=== PATIENT | male | born 1960 | race Caucasian/White ===

== ENCOUNTER → 2019-03-30 | Day surgery (SDC) | payer OTHER ==
[~2019-03-30] MED LIST: FENTANYL CITRATE/PF 100MCG/2 ML INJ ONE; LIDOCAINE HCL 2% LOCAL INJ 5 ML SDV VIAL INJ ONE; MIDAZOLAM HCL 2 MG/2 ML VIAL ONE; PHENYLEPHRINE HCL 1% 10 MG/ML VIAL ONE; PROPOFOL IV EMULSION 10 MG/ML 20 ML VIAL ONE
--- OUTSIDE RECORDS SUMMARY | 2019-03-30 08:56 | XMS REPORT ---
Author Author [facility] Address Unknown Phone Unavailable Care Team Providers Care [employer] Name Role Phone Unavailable Unavailable Payers Payer Name Policy Type Policy Number Effective Date Expiration Date Problems This patient has no known problems. Allergies, Adverse Reactions, Alerts Allergy Name Allergy Type Status Severity Reaction(s) Onset Date Inactive Date Treating Clinician Comments No Known Allergies DA Active U 2019-01-02 00:00:00 Medications This patient has no known medications. Results Test Description Test Time Test Comments Text Results Atomic Results Result Comments BASIC METABOLIC PANEL 2019-01-06 08:46:00 SODIUM (test code=NA) 133 mEq/L 134-147 POTASSIUM (test code=K) 4.5 mEq/L 3.4-5.0 CHLORIDE (test code=CL) 102 mEq/L 100-108 CARBON DIOXIDE (test code=CO2) 27 mEq/L 21-33 ANION GAP (test code=GAP) 9 0-20 GLUCOSE (test code=GLU) 79 mg/dL 70-110 BLOOD UREA NITROGEN (test code=BUN) 20 mg/dL 7-18 GLOMERULAR FILTRATION RATE (test code=GFR) 87.0 90-95 Units of measure=ml/min/1.73 m2 CREATININE (test code=CREAT) 0.9 mg/dL 0.6-1.3 CALCIUM (test code=CA) 8.6 mg/dL 8.0-10.5 [id number] 08:46:00* Test Item Value Reference Range Comments PHOSPHOROUS (test code=PHOS) 2.4 MG/DL 2.5-4.9 [id number] 08:46:00* Test Item Value Reference Range Comments MAGNESIUM (test code=MAG) 1.90 mg/dL 1.8-2.4 CBC W/AUTO [id number] 07:41:00* Test Item Value Reference Range Comments WHITE BLOOD CELL (test code=WBC) 4.73 x10 3/uL 4.5-11.0 RED BLOOD CELL (test code=RBC) 2.86 x10 6/uL 4.00-5.60 HEMOGLOBIN (test code=HGB) 8.2 g/dL 12.5-16.9 HEMATOCRIT (test code=HCT) 24.9 % 37.5-50.7 MEAN CELL VOLUME (test code=MCV) 87.1 fL 81.0-99.0 MEAN CELL HGB (test code=MCH) 28.7 pg 27.0-33.0 MEAN CELL HGB CONCETRATION (test code=MCHC) 32.9 g/dL 33.0-37.0 RED CELL DISTRIBUTION WIDTH CV (test code=RDW) 12.6 % 11.5-14.5 RED CELL DISTRIBUTION WIDTH SD (test code=RDW-SD) 40.4 fL 37.0-54.0 PLATELET COUNT (test code=PLT) 190 x10 3/uL 150-400 MEAN PLATELET VOLUME (test code=MPV) 10.0 fL 7.0-9.0 NEUTROPHIL % (test code=NT%) 68.6 % 56.0-77.0 IMMATURE GRANULOCYTE % (test code=IG%) 0.4 % 0.0-2.0 LYMPHOCYTE % (test code=LY%) 13.5 % 14.0-32.0 MONOCYTE % (test code=MO%) 12.7 % 4.8-9.0 EOSINOPHIL % (test code=EO%) 4.4 % 0.3-3.7 BASOPHIL % (test code=BA%) 0.4 % 0.0-2.0 NUCLEATED RBC % (test code=NRBC%) 0.0 % 0-0 NEUTROPHIL # (test code=NT#) 3.24 x10 3/uL 2.0-7.6 IMMATURE GRANULOCYTE # (test code=IG#) 0.02 x10 3/uL 0.00-0.03 LYMPHOCYTE # (test code=LY#) 0.64 x10 3/uL 1.0-3.8 MONOCYTE # (test code=MO#) 0.60 x10 3/uL 0.1-0.8 EOSINOPHIL # (test code=EO#) 0.21 x10 3/uL 0.0-0.2 BASOPHIL # (test code=BA#) 0.02 x10 3/uL 0.0-0.2 NUCLEATED RBC # (test code=NRBC#) 0.00 x10 3/uL 0.0-0.1 MANUAL DIFF REQUIRED (test code=MDIFF) NO - XR SWLW FUNC W/C [id number] 14:37:00 FAX: Radha Denson [phone] [place]: St: ADM FAX: Tisha Smith MD [phone] Name: GIORGIO TEIXEIRA [facility] : 1960 Age/S: 58/M [address] [place] [address] Unit #: [id number] Loc: G.6627 [facility] [place] [address] Phys: Radha Denson [facility] Acct: [id number] Dis Date: Status: ADM IN PHONE #: [phone] Exam Date: 01/05/2019 1420 FAX #: [phone] Reason: HX OF H N CANCER W/RA DIATION [place] EXAMS: CPT CODE: [id number] XR SWLW FUNC W/C V 04557 MODIFIED BARIUM SWALLOW: INDICATION: Patient has history of head and neck malignancy with subsequent radiation therapy. D ysphagia . FLUOROSCOPY: 1 minute 52 seconds of fluoroscopy utilize d. RADIATION EXPOSURE: 5.59 mGy. This study was performed i n conjunction with the speech pathologist. Thin and nectar thick liquid ba rium were given as well as barium pudding. ORAL PHASE: No rmal, although chewing was not assessed.. PHARYNGEAL PHASE: Vallec ular pooling occurs with piriform pooling. Persistent laryngeal penetrati on with thin and nectar thick liquid. No aspiration. ESOPHA JERRY: Not tested. IMPRESSION: Persistent laryngeal penetration wi th liquids. No aspiration. Please refer to the speech pathologist report. [id number] at 1437 Reported and si gned by: Daryl Cardona M.D. CC: Radha Denson; Tisha cortes MD Technologist: RT Senait(R) Trnscrd Date/Time/By: 01/05/2019 (9586) : By: JamesRTB Orig Print D/T: S: 01/05/2019 (8487) PAGE 1 Signed Report BASIC METABOLIC [id number] 05:01:00* Test Item Value Reference Range Comments SODIUM (test code=NA) 134 mEq/L 134-147 POTASSIUM (test code=K) 4.3 mEq/L 3.4-5.0 CHLORIDE (test code=CL) 101 mEq/L 100-108 CARBON DIOXIDE (test code=CO2) 29 mEq/L 21-33 ANION GAP (test code=GAP) 8 0-20 GLUCOSE (test code=GLU) 74 mg/dL 70-110 BLOOD UREA NITROGEN (test code=BUN) 25 mg/dL 7-18 GLOMERULAR FILTRATION RATE (test code=GFR) 62.4 90-95 Units of measure=ml/min/1.73 m2 CREATININE (test code=CREAT) 1.2 mg/dL 0.6-1.3 CALCIUM (test code=CA) 8.0 mg/dL 8.0-10.5 [id number] 05:01:00* Test Item Value Reference Range Comments PHOSPHOROUS (test code=PHOS) 2.5 MG/DL 2.5-4.9 [id number] 05:01:00* Test Item Value Reference Range Comments MAGNESIUM (test code=MAG) 1.90 mg/dL 1.8-2.4 TOTAL IRON BINDING [id number] 05:01:00* Test Item Value Reference Range Comments SERUM IRON (test code=IRON) 55 mcg/dL 35-150 TOTAL IRON BINDING CAPACITY (test code=TIBC) 214 mcg/dL 260-445 UIBC (test code=UIBC) 159 mcg/dL IRON SATURATION (test code=FESAT) 25.7 % 14-34 VITAMIN [id number] 05:01:00* Test Item Value Reference Range Comments VITAMIN B12 (test code=VITB12) 690 pg/mL 193-986 FOLIC [id number] 05:01:00* Test Item Value Reference Range Comments FOLIC ACID (test code=FOL) 4.1 ng/mL 3.1-17.5 [id number] 05:01:00* Test Item Value Reference Range Comments FERRITIN (test code=JOSE ALFREDO) 124.7 ng/mL 23.9-336.2 CBC W/AUTO [id number] 04:17:00* Test Item Value Reference Range Comments WHITE BLOOD CELL (test code=WBC) 4.36 x10 3/uL 4.5-11.0 RED BLOOD CELL (test code=RBC) 2.75 x10 6/uL 4.00-5.60 HEMOGLOBIN (test code=HGB) 7.9 g/dL 12.5-16.9 HEMATOCRIT (test code=HCT) 23.9 % 37.5-50.7 MEAN CELL VOLUME (test code=MCV) 86.9 fL 81.0-99.0 MEAN CELL HGB (test code=MCH) 28.7 pg 27.0-33.0 MEAN CELL HGB CONCETRATION (test code=MCHC) 33.1 g/dL 33.0-37.0 RED CELL DISTRIBUTION WIDTH CV (test code=RDW) 12.8 % 11.5-14.5 RED CELL DISTRIBUTION WIDTH SD (test code=RDW-SD) 40.4 fL 37.0-54.0 PLATELET COUNT (test code=PLT) 141 x10 3/uL 150-400 MEAN PLATELET VOLUME (test code=MPV) 9.6 fL 7.0-9.0 NEUTROPHIL % (test code=NT%) 70.2 % 56.0-77.0 IMMATURE GRANULOCYTE % (test code=IG%) 0.2 % 0.0-2.0 LYMPHOCYTE % (test code=LY%) 12.2 % 14.0-32.0 MONOCYTE % (test code=MO%) 12.6 % 4.8-9.0 EOSINOPHIL % (test code=EO%) 4.1 % 0.3-3.7 BASOPHIL % (test code=BA%) 0.7 % 0.0-2.0 NUCLEATED RBC % (test code=NRBC%) 0.0 % 0-0 NEUTROPHIL # (test code=NT#) 3.06 x10 3/uL 2.0-7.6 IMMATURE GRANULOCYTE # (test code=IG#) 0.01 x10 3/uL 0.00-0.03 LYMPHOCYTE # (test code=LY#) 0.53 x10 3/uL 1.0-3.8 MONOCYTE # (test code=MO#) 0.55 x10 3/uL 0.1-0.8 EOSINOPHIL # (test code=EO#) 0.18 x10 3/uL 0.0-0.2 BASOPHIL # (test code=BA#) 0.03 x10 3/uL 0.0-0.2 NUCLEATED RBC # (test code=NRBC#) 0.00 x10 3/uL 0.0-0.1 MANUAL DIFF REQUIRED (test code=MDIFF) NO - US RETRO [id number] 14:26:00 Name: GIORGIO TEIXEIRA [facility] : 1960 Age/S: 58 / M [address] [place] [address] Unit #: [id number] Loc: [place] [address] Phys: Kaiser James MD Acct: [id number] Dis Date: Status: ADM IN PHONE #: [phone] Exam Date: 01/04/2019 1407 FAX #: [phone] Reason: elevated creatinine EXAMS: CPT CODE: [id number] US RETRO LTD 82801 Patient: GIORGIO TEIXEIRA. : 1960; Age: 58 years; Gender: Male. MR: [id number]. Ordering physician: Kaiser James MD. PROCEDURE: RENAL ULTRASOUND INDICATION: Elevated creatinine. COMPARISON: CT abdomen and pelvis 01/02/2019. TECHNIQUE: Sonographic evaluation of the kidneys and urinary bladder was performed. FINDINGS: KIDNEYS: The right kidney measures 11.5 cm in length. Several subcentimeter cysts noted. Normal contour and parenchymal echogenicity. There is no hydronephrosis, nephrolithiasis, mass lesion or perinephric collection. The left kidney measures 11.9 cm in length. Several subcentimeter cysts also noted. Normal contour and parenchymal echogenicity. There is no hydronephrosis, nephrolithiasis, mass lesion or perinephric collection. BLADDER: Debris noted within urinary bladder. Partially visualized inferior vena cava and abdominal aorta are unremarkable. Aortic bifurcation was not visualized secondary to overlying bowel gas. IMPRESSION: 1. Several subcentimeter renal cysts bilaterally. Otherwise, kidneys are unremarkable bilaterally. 2. Debris noted within urinary bladder. SL: [id number] PAGE 1 Signed Report (CONTINUED) Name: GIORGIO TEIXEIRA [place] : 1960 Age/S: 58 / M [address] [place] [address] Unit #: [id number] Loc: [place] [address] Phys: Kaiser James MD Acct: [id number] Dis Date: Status: ADM IN PHONE #: [phone] Exam Date: 01/04/2019 140 FAX #: [phone] Reason: elevated creatinine EXAMS: CPT CODE: [id number] [facility] [address] < Continued> at 1426 Reported and signed by: Pete Mayorga M.D. CC: Kaiser James MD; Tisha Smith MD Technologist: Aura Barrow RDMS(AB) Trnscb Date/Time: 01/04/2019 (1426) [email or web address] Orig Print D/T: S: 01/04/2019 (1430) Probe: PAGE 2 Signed Report - DUP EXTRACRANIAL [id number] 14:13:00 Name: GIORGIO TEIXEIRA [place] : 1960 Age/S: 58 / M [address] [place] [address] Unit #: [id number] Loc: [facility] [facility] [address] Phys: Tisha Smith MD Acct: [id number] Dis Date: Status: ADM IN PHONE #: [phone] Exam Date: 01/04/2019 140 FAX #: [phone] Reason: SYNCOPE EXAMS: CPT CODE: [id number] DUP EXTRACRANIAL AURELIA 93587 Patient: GIORGIO TEIXEIRA. : 1960; Age: 58 years; Gender: Male. MR: [id number]. Ordering physician: Tisha Smith MD. CAROTID DOPPLER HISTORY: Syncope. TECHNIQUE: Grewal-scale, color Doppler and spectral Doppler of the carotid arteries was performed. Any reported ICA stenoses indirectly reference the distal internal carotid diameter as the denominator for stenosis measurement, utilizing consensus panel criteria. RIGHT: Minimal atherosclerotic plaques noted. ICA PSV 80.7 cm/sec CCA PSV 97.7 cm/sec ICA/CCA ratio 0.8 Vertebral flow is antegrade. LEFT: Minimal atherosclerotic plaques noted. ICA PSV 79.5 cm/sec CCA PSV 124 cm/sec ICA/CCA ratio 0.6 Vertebral flow is antegrade. IMPRESSION: 1. RIGHT: ICA stenosis < 50 % by velocity criteria. 2. LEFT: ICA stenosis <50 % by velocity criteria. End Impression Consensus panel Doppler US criteria for diagnosis of ICA stenosis. Stenosis (%) ICA PSV (cm/sec) ICA/CCA ratio <50 <125 <2.0 50-69 125- 230 2.0-4.0 >70 but less than >230 >4.0 near occlusion Near occlusion High, low, or undetectable Variable SL: [id number] PAGE 1 Signed Report (CONTINUED) Name: GIORGIO TEIXEIRA [facility] : 1960 Age/S: 58 / M [address] [place] [address] Blvd Unit #: [id number] Loc: [place] [address] Phys: Tisha Smith MD Acct: [id number] Dis Date: Status: ADM IN PHONE #: [phone] Exam Date: 01/04/2019 1406 FAX #: [phone] Reason: SYNCOPE EXAMS: CPT CODE: [id number] DUP EXTRACRANIAL AURELIA 82590 < Continued> at 1413 Reported and signed by: Pete Mayorga M.D. CC: Tisha Smith MD Technologist: Aura Barrow RDMS() Trnscb Date/Time: 01/04/2019 (1413) [email or web address] Orig Print D/T: S: 01/04/2019 (1746) Probe: PAGE 2 Signed Report CBC W/AUTO [id number] 09:42:00* Test Item Value Reference Range Comments WHITE BLOOD CELL (test code=WBC) 4.86 x10 3/uL 4.5-11.0 RED BLOOD CELL (test code=RBC) 2.16 x10 6/uL 4.00-5.60 HEMOGLOBIN (test code=HGB) 6.1 g/dL 12.5-16.9 HEMATOCRIT (test code=HCT) 18.8 % 37.5-50.7 MEAN CELL VOLUME (test code=MCV) 87.0 fL 81.0-99.0 MEAN CELL HGB (test code=MCH) 28.2 pg 27.0-33.0 MEAN CELL HGB CONCETRATION (test code=MCHC) 32.4 g/dL 33.0-37.0 RED CELL DISTRIBUTION WIDTH CV (test code=RDW) 12.5 % 11.5-14.5 RED CELL DISTRIBUTION WIDTH SD (test code=RDW-SD) 39.8 fL 37.0-54.0 PLATELET COUNT (test code=PLT) 153 x10 3/uL 150-400 MEAN PLATELET VOLUME (test code=MPV) 10.0 fL 7.0-9.0 NEUTROPHIL % (test code=NT%) 74.5 % 56.0-77.0 IMMATURE GRANULOCYTE % (test code=IG%) 0.2 % 0.0-2.0 LYMPHOCYTE % (test code=LY%) 10.5 % 14.0-32.0 MONOCYTE % (test code=MO%) 11.9 % 4.8-9.0 EOSINOPHIL % (test code=EO%) 2.5 % 0.3-3.7 BASOPHIL % (test code=BA%) 0.4 % 0.0-2.0 NUCLEATED RBC % (test code=NRBC%) 0.0 % 0-0 NEUTROPHIL # (test code=NT#) 3.62 x10 3/uL 2.0-7.6 IMMATURE GRANULOCYTE # (test code=IG#) 0.01 x10 3/uL 0.00-0.03 LYMPHOCYTE # (test code=LY#) 0.51 x10 3/uL 1.0-3.8 MONOCYTE # (test code=MO#) 0.58 x10 3/uL 0.1-0.8 EOSINOPHIL # (test code=EO#) 0.12 x10 3/uL 0.0-0.2 BASOPHIL # (test code=BA#) 0.02 x10 3/uL 0.0-0.2 NUCLEATED RBC # (test code=NRBC#) 0.00 x10 3/uL 0.0-0.1 MANUAL DIFF REQUIRED (test code=MDIFF) NO BASIC METABOLIC [id number] 07:43:00* Test Item Value Reference Range Comments SODIUM (test code=NA) 135 mEq/L 134-147 POTASSIUM (test code=K) 4.3 mEq/L 3.4-5.0 CHLORIDE (test code=CL) 105 mEq/L 100-108 CARBON DIOXIDE (test code=CO2) 28 mEq/L 21-33 ANION GAP (test code=GAP) 6 0-20 GLUCOSE (test code=GLU) 80 mg/dL 70-110 BLOOD UREA NITROGEN (test code=BUN) 34 mg/dL 7-18 GLOMERULAR FILTRATION RATE (test code=GFR) 41.7 90-95 Units of measure=ml/min/1.73 m2 CREATININE (test code=CREAT) 1.7 mg/dL 0.6-1.3 CALCIUM (test code=CA) 7.9 mg/dL 8.0-10.5 [id number] 07:43:00* Test Item Value Reference Range Comments PHOSPHOROUS (test code=PHOS) 2.7 MG/DL 2.5-4.9 [id number] 07:43:00* Test Item Value Reference Range Comments MAGNESIUM (test code=MAG) 2.00 mg/dL 1.8-2.4 UR PROTEIN [id number] 06:36:00* Test Item Value Reference Range Comments UR PROTEIN RANDOM (test code=PROTU) 44 mg/dL Note: Change in UNITS of MEASUREMENT. The Reference Range and Method Performance specificationshave not been established for this fluid. The test resultshould be correlated into the clinical context forinterpretation. UR CREATININE [id number] 06:36:00* Test Item Value Reference Range Comments UR CREATININE RANDOM (test code=CREATU) 122.0 mg/dL The Reference Range and Method Performance specificationshave not been established for this fluid. The test resultshould be correlated into the clinical context forinterpretation. TOTAL IRON BINDING [id number] 19:00:00* Test Item Value Reference Range Comments SERUM IRON (test code=IRON) 80 mcg/dL 35-150 TOTAL IRON BINDING CAPACITY (test code=TIBC) 236 mcg/dL 260-445 UIBC (test code=UIBC) 156 mcg/dL IRON SATURATION (test code=FESAT) 33.9 % 14-34 VITAMIN [id number] 19:00:00* Test Item Value Reference Range Comments VITAMIN B12 (test code=VITB12) 787 pg/mL 193-986 Previously reported result: pg/mLEdited by: CANDIEKTDeborah on 01/03/19: 1900: VITB12 previously reported as: pg/mL ]@Was this test run on SERUM from a RED TOP tube? YES FOLIC [id number] 19:00:00* Test Item Value Reference Range Comments FOLIC ACID (test code=FOL) 5.4 ng/mL 3.1-17.5 [id number] 19:00:00* Test Item Value Reference Range Comments FERRITIN (test code=JOSE ALFREDO) 155.9 ng/mL 23.9-336.2 TOTAL IRON BINDING [id number] 18:22:00* Test Item Value Reference Range Comments SERUM IRON (test code=IRON) 80 mcg/dL 35-150 TOTAL IRON BINDING CAPACITY (test code=TIBC) 236 mcg/dL 260-445 UIBC (test code=UIBC) 156 mcg/dL IRON SATURATION (test code=FESAT) 33.9 % 14-34 VITAMIN [id number] 18:22:00* Test Item Value Reference Range Comments VITAMIN B12 (test code=VITB12) pg/mL 193-986 ]@Was this test run on SERUM from a RED TOP tube? YES FOLIC [id number] 18:22:00* Test Item Value Reference Range Comments FOLIC ACID (test code=FOL) 5.4 ng/mL 3.1-17.5 [id number] 18:22:00* Test Item Value Reference Range Comments FERRITIN (test code=JOSE ALFREDO) 155.9 ng/mL 23.9-336.2 CREATINE KINASE (CK)2019-01-03 17:56:00* Test Item Value Reference Range Comments CREATINE KINASE (CK) (test code=CK) 81 35-232 Result is in INTERNATIONAL UNITS/LITER DRUGS OF ABUSE SCREEN [id number] 11:17:00* Test Item Value Reference Range Comments URN COCAINE (test code=COCAURN) POSITIVE NEGATIVE URN CANNABINOIDS (test code=CANNABURN) NEGATIVE NEGATIVE URN AMPHETAMINE (test code=AMPHETURN) NEGATIVE NEGATIVE URN BARBITURATE (test code=BARBITURN) NEGATIVE NEGATIVE URN BENZODIAZEPINE (test code=BENZOURN) NEGATIVE NEGATIVE Cut-off value:200 ng/mL URN OPIATES (test code=OPIATURN) POSITIVE NEGATIVE Cut-off value:2000 ng/mL URN PHENCYCLIDINE (PCP) (test code=PHENCURN) NEGATIVE NEGATIVE Cutoffs:Barbiturates 200 ng/mLBenzodiazepines 200 ng/mLTHC Cannabinoids 50 ng/mLOpiates(Morphine) 2000 ng/mLAmphetamine 1000 ng/mLCocaine 300 ng/mLPCP phencyclidine 25 ng/mL Unconfirmed screening results shouldnot be used for non-medical purposes. DRUGS OF ABUSE SCREEN [id number] 11:08:00* Test Item Value Reference Range Comments URN COCAINE (test code=COCAURN) NEGATIVE URN CANNABINOIDS (test code=CANNABURN) NEGATIVE NEGATIVE URN AMPHETAMINE (test code=AMPHETURN) NEGATIVE NEGATIVE URN BARBITURATE (test code=BARBITURN) NEGATIVE NEGATIVE URN BENZODIAZEPINE (test code=BENZOURN) NEGATIVE NEGATIVE Cut-off value:200 ng/mL URN OPIATES (test code=OPIATURN) NEGATIVE URN PHENCYCLIDINE (PCP) (test code=PHENCURN) NEGATIVE NEGATIVE Cutoffs:Barbiturates 200 ng/mLBenzodiazepines 200 ng/mLTHC Cannabinoids 50 ng/mLOpiates(Morphine) 2000 ng/mLAmphetamine 1000 ng/mLCocaine 300 ng/mLPCP phencyclidine 25 ng/mL Unconfirmed screening results shouldnot be used for non-medical purposes. URINALYSIS [id number] 10:45:00* Test Item Value Reference Range Comments UA COLOR (test code=COLU) YELLOW YEL/STRAW UA APPEARANCE (test code=APPU) SL CLOUDY CLEAR UA GLUCOSE DIPSTICK (test code=DGLUU) NEGATIVE NEGATIVE UA BILIRUBIN DIPSTICK (test code=BILU) NEGATIVE NEGATIVE UA KETONE DIPSTICK (test code=KETU) NEGATIVE NEGATIVE UA SPECIFIC GRAVITY (test code=SGU) 1.038 1.005-1.030 UA BLOOD DIPSTICK (test code=SJ) NEGATIVE NEGATIVE UA PH DIPSTICK (test code=ANDRES) 5.0 5.0-7.0 UA PROTEIN DIPSTICK (test code=PROU) NEGATIVE NEGATIVE UA UROBILINIOGEN DIPSTICK (test code=URO) 0.2 mg/dL 0.2-1.0 UA NITRITE DIPSTICK (test code=OJ) NEGATIVE NEGATIVE UA LEUKOCYTE ESTERASE DIPSTICK (test code=LEUU) NEGATIVE NEGATIVE UA RBC (test code=RBCU) 4-10 RBC/HPF 0-3 UA WBC NO REFLEX (test code=WBCUCL) 4-9 WBC/HPF 0-3 UA BACTERIA (test code=BACU) TRACE /HPF NONE SEEN UA SQUAMOUS CELLS (test code=SQU) 0-5 /HPF NONE SEEN UA MUCUS (test code=MUCU) TRACE /LPF NONE SEEN COMMENTS: Clean [id number] 10:40:00* Test Item Value Reference Range Comments TROPONIN-I (test code=TROPI) 0.133 ng/mL 0.000-0.045 Negative: <=0.045 Positive: >=0.046 Correlation with serial results, other cardiac markers andclinical findings is necessary to determine the clinicalsignificance of this result. Results using different methodologies should not be comparedto one another as quantitative results may vary by method. COMMENTS: 3 troponins total (including troponin done in ED)LIPOPROTEIN LDL 2019-01-03 08:34:00* Test Item Value Reference Range Comments LIPOPROTEIN LDL (test code=LDL) 95 mg/dL 0-100 <100 [id number] NEAR OPTIMAL/ABOVE [id number] [id number] HIGH>MV=574 VERY HIGH*Guidelines provided by the National Cholesterol EducationProgram Adult Treatment Panel III [id number] 08:06:00* Test Item Value Reference Range Comments TROPONIN-I (test code=TROPI) 0.101 ng/mL 0.000-0.045 Negative: <=0.045 Positive: >=0.046 Correlation with serial results, other cardiac markers andclinical findings is necessary to determine the clinicalsignificance of this result. Results using different methodologies should not be comparedto one another as quantitative results may vary by method. COMMENTS: 3 troponins total (including troponin done in ED)- CT ABD PELVIS [id number] 22:54:00 Name: GIORGIO TEIXEIRA [facility] : 1960 Age/S: 58 / M [address] [place] [address] Unit #: [id number] Loc: [place] [address] Phys: Jerry Venegas MD Acct: [id number] Dis Date: Status: REG ER PHONE #: [phone] Exam Date: 01/02/2019 2207 FAX #: [phone] Reason: fall, head injury , multiple lacerations EXAMS: CPT CODE: [id number] CT ABD PELVIS W/CONT 65291 CT SCAN OF THE CHEST ABDOMEN AND PELVIS WITH CONTRAST (MAJOR TRAUMA PROTOCOL): HISTORY: Major trauma. Acute injury. COMPARISON EXAMS: No prior pertinent exams for comparison. TECHNIQUE: Axial images were obtained of the chest from the lung apices to the lung bases following intravenous injection of 100 mL Isovue-300. Images were obtained of the abdomen and pelvis from the domes of the diaphragm to the symphysis pubis. 5 minute delayed images were obtained at similar levels during renal excretion phase. Coronal reconstructions were generated of the chest, abdomen and pelvis. Sagittal reconstructions were obtained of the thoracic and lumbar spine. DOSE: CT imaging performed at this location utilizes radiation dose optimization technique which includes one or more of the followin) Automated exposure control; 2) Adjustment of the mA and/or kV according to patient's size; 3) Use of iterative reconstruction techniques. DLP (mGy-cm): 604 FINDINGS: CHEST: No acute changes are identified in the chest. No acute infiltrates, pleural effusions or pulmonary contusions. No evidence of pneumothorax or pneumomediastinum. No dominant hilar or mediastinal masses. No evidence of vascular injury. However, there are extensive bilateral pulmonary cysts throughout all lobes of both lungs. The cysts are air filled with thin martinez. Pattern at the lung bases is more of a honeycomb pattern. Marked hyperinflation. Pleural parenchymal scarring is noted bilaterally with diffuse in terstitial prominence. There are multiple areas of nodular opacity and par enchymal scarring. The largest pasty is approximately 10 mm and positioned posteriorly and medially in the left lower lobe. ABDOMEN AND PELVIS: No solid organ laceration identified in the abdomen or pelvis . No focal lesions in the liver, spleen, pancreas, adrenal glands or kidn eys. No evidence of mesenteric hematoma, free air or free fluid. No acti ve extravasation. The gallbladder is normal in size. No evidence of appen dicitis. Evaluation of the abdomen and pelvis is very limited due to the p ossibility of generalized body fat. PAGE 1 Sign ed Report (CONTINUED) Name: GIORGIO TEIXEIRA [facility] : 1960 Age/S: 58 / M [address] [place] [address] Bl Unit #: [id number] Loc: [place] [address] Phys: Jerry Venegas MD Acct: [id number] Dis Date: Status: REG ER PHONE #: [phone] Exam Date: 01/02/2019 2207 FAX #: [phone] Reason: fall, head injury , mu ltiple lacerations EXAMS: CPT CODE: [id number] CT ABD PELVIS W/CONT 39507 <Continued> Fullness in the level of the left inguinal canal, and empty left side of the scrotum, compatible with incompletely distended left testicle. Excretion phase imaging shows normal opacification of the renal collecting structures. No evidence of contrast extravasation. No contrast material reached the urinary bladder at the time of the delayed imaging. SKELETAL: Bone windows show no evidence of acute fracture or suspicious blastic or lytic lesions. Spinal alignment is normal. No evidence of spinal or pelvic fracture. No evidence of sternal or rib fracture. IMPRESSION: 1. No acute changes identified in the chest, abdomen or pelvis. 2. Non descended left testicle identified in the left inguinal canal. 3. Difficult evaluation of the abdomen and pelvis due to the paucity of generalized body fat. 4. 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 The exact etiology of these findings is unknown. Pulmonary fibrosis, lymphangioleiomyomatosis, and underlying emphysematous changes are all possible. No prior imaging for comparison. 5. Up to 10 mm pleural-based pulmonary nodule noted in the left lower lobe. Short-term follow-up CT scan of the chest is recommended in 3 months to determine whether or not this resolves. If this persists, further evaluation would be warranted if stability cannot be proven by comparison to any prior exams. 6. Otherwise unremarkable exam. SL:01 at 3627 Reported and signed by: Jose Pepe M.D. PAGE 2 Signed Report (CONTINUED) Name: GIORGIO TEIXEIRA [facility] : 1960 Age/S: 58 / M [address] [place] [address] Unit #: [id number] Loc: [place] [address] Phys: Jerry Venegas MD Acct: [id number] Dis Date: Status: REG ER PHONE #: [phone] Exam Date: 01/02/20192206 FAX #: [phone] Reason: fall, head injury , multiple lacerations EXAMS: CPT CODE: [id number] CT ABD PELVIS W/CONT 86919 <Continued> CC: Jerry Venegas MD Technologist:RT Arturo(R) CTDI: DLP: Trnscb Date/Time: 01/02/2019 (2253) t.RICK Orig Print D/T: S: 01/02/2019 (2256) PAGE 3 Signed Report - CT CHEST W/[id number] 22:54:00 Name: GIORGIO TEIXEIRA [facility] : 1960 Age/S: 58 / M [address] [place] [address] Unit #: [id number] Loc: [place] [address] Phys: Jerry Venegas MD Acct: [id number] Dis Date: Status: REG ER PHONE #: [phone] Exam Date: 01/02/2019 2207 FAX #: [phone] Reason: fall, head injury , multiple lacerations EXAMS: CPT CODE: [id number] CT CHEST W/CONTRAST 57698 CT SCAN OF THE CHEST ABDOMEN AND PELVIS WITH CONTRAST (MAJOR TRAUMA PROTOCOL): HISTORY: Major trauma. Acute injury. COMPARISON EXAMS: No prior pertinent exams for comparison. TECHNIQUE: Axial images were obtained of the chest from the lung apices to the lung bases following intravenous injection of 100 mL Isovue-300. Images were obtained of the abdomen and pelvis from the domes of the diaphragm to the symphysis pubis. 5 minute delayed images were obtained at similar levels during renal excretion phase. Coronal reconstructions were generated of the chest, abdomen and pelvis. Sagittal reconstructions were obtained of the thoracic and lumbar spine. DOSE: CT imaging performed at this location utilizes radiation dose optimization technique which includes one or more of the followin) Automated exposure control; 2) Adjustment of the mA and/or kV according to patient's size; 3) Use of iterative reconstruction techniques. DLP (mGy-cm): 604 FINDINGS: CHEST: No acute changes are identified in the chest. No acute infiltrates, pleural effusions or pulmonary contusions. No evidence of pneumothorax or pneumomediastinum. No dominant hilar or mediastinal masses. No evidence of vascular injury. However, there are extensive bilateral pulmonary cysts throughout all lobes of both lungs. The cysts are air filled with thin martinez. Pattern at the lung bases is more of a honeycomb pattern. Marked hyperinflation. Pleural parenchymal scarring is noted bilaterally with diffuse in terstitial prominence. There are multiple areas of nodular opacity and par enchymal scarring. The largest pasty is approximately 10 mm and positioned posteriorly and medially in the left lower lobe. ABDOMEN AND PELVIS: No solid organ laceration identified in the abdomen or pelvis . No focal lesions in the liver, spleen, pancreas, adrenal glands or kidn eys. No evidence of mesenteric hematoma, free air or free fluid. No acti ve extravasation. The gallbladder is normal in size. No evidence of appen dicitis. Evaluation of the abdomen and pelvis is very limited due to the p ossibility of generalized body fat. PAGE 1 Sign ed Report (CONTINUED) Name: GIORGIO TEIXEIRA [facility] : 1960 Age/S: 58 / M [address] [place] [address] Unit #: [id number] Loc: [place] [address] Phys: Jerry Venegas MD Acct: [id number] Dis Date: Status: REG ER PHONE #: [phone] Exam Date: 01/02/2019 2207 FAX #: [phone] Reason: fall, head injury , mu ltiple lacerations EXAMS: CPT CODE: [id number] CT CHEST W/CONTRAST 72779 <Continued> Fullness in the level of the left inguinal canal, and empty left side of the scrotum, compatible with incompletely distended left testicle. Excretion phase imaging shows normal opacification of the renal collecting structures. No evidence of contrast extravasation. No contrast material reached the urinary bladder at the time of the delayed imaging. SKELETAL: Bone windows show no evidence of acute fracture or suspicious blastic or lytic lesions. Spinal alignment is normal. No evidence of spinal or pelvic fracture. No evidence of sternal or rib fracture. IMPRESSION: 1. No acute changes identified in the chest, abdomen or pelvis. 2. Non descended left testicle identified in the left inguinal canal. 3. Difficult evaluation of the abdomen and pelvis due to the paucity of generalized body fat. 4. 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 The exact etiology of these findings is unknown. Pulmonary fibrosis, lymphangioleiomyomatosis, and underlying emphysematous changes are all possible. No prior imaging for comparison. 5. Up to 10 mm pleural-based pulmonary nodule noted in the left lower lobe. Short-term follow-up CT scan of the chest is recommended in 3 months to determine whether or not this resolves. If this persists, further evaluation would be warranted if stability cannot be proven by comparison to any prior exams. 6. Otherwise unremarkable exam. SL:01 at 2254 Reported and signed by: Jose Pepe M.D. PAGE 2 Signed Report (CONTINUED) Name: GIORGIO TEIXEIRA [facility] [place] : 1960 Age/S: 58 / M [address] [place] [address] Unit #: [id number] Loc: [place] [address] Phys: Jerry Venegas MD Acct: [id number] Dis Date: Status: REG ER PHONE #: [phone] Exam Date: 01/02/20192206 FAX #: [phone] Reason: fall, head injury , multiple lacerations EXAMS: CPT CODE: [id number] CT CHEST W/CONTRAST 74914 <Continued> CC: Jerry Venegas MD Technologist:Tori Juan, RT(R) CTDI: DLP: Trnscb Date/Time: 01/02/2019 (809) [email or web address] Orig Print D/T: S: 01/02/2019 (3754) PAGE 3 Signed Report - CT C-SPINE W/O [id number] 22:28:00 Name: GIORGIO TEIXEIRA [facility] [place] : 1960 Age/S: 58 / M [address] [place] [address] Unit #: [id number] Loc: [place] [address] Phys: Jerry Venegas MD Acct: [id number] Dis Date: Status: REG ER PHONE #: [phone] Exam Date: 01/02/20192206 FAX #: [phone] Reason: NECK PAIN EXAMS: CPT CODE: [id number] CT C-SPINE W/O CONT 03004 CT SCAN OF THE CERVICAL SPINE WITHOUT CONTRAST: HISTORY: Acute injury. Acute neck pain. COMPARISON EXAMS: No prior pertinent exams for comparison. TECHNIQUE: Axial images were obtained from the skull base to the thoracic inlet without contrast material. Sagittal and coronal reconstructions were generated. No prior plain films available for comparison. DOSE: CT imaging performed at this location utilizes radiation dose optimization technique which includes one or more of the followin) Automated exposure control; 2) Adjustment of the mA and/or kV according to patient's size; 3) Use of iterative reconstruction techniques. DLP (mGy-cm): 300 FINDINGS: Alignment of the cervical spine remains normal. The prevertebral tissues are normal. No evidence of fracture or subluxation. Moderate to severe diffuse disc space narrowing and osteophyte formation are present compatible with degenerative disc disease. The facets are narrowed with marginal osteophytes compatible with moderate osteoarthritis. The facet joints are fused at C2-C3. The lung apices are clear. Soft tissue evaluation of the neck shows some asymmetry in the oropharynx and in the right piriform sinus. This likely represents some layering secretions. These regions are not well evaluated without IV contrast. No dominant adenopathy. The thyroid gland is unremarkable. IMPRESSION: 1. No evidence of fracture or subluxation. 2. Moderate to severe degenerative disc disease and osteoarthritis. 3. The C2-C3 facet joints appear congenitally fused. 4. Asymmetries in the oropharynx and hypopharynx are likely secondary to layering secretions. SL:01 PAGE 1 Signed Report (CONTINUED) Name: GIORGIO TEIXEIRA [facility] [place] : 1960 Age/S: 58 / M [address] [place] [address] Unit #: [id number] Loc: [place] [address] Phys: Jerry Venegas MD Acct: [id number] Dis Date: Status: REG ER PHONE #: [phone] Exam Date: 01/02/20192206 FAX #: [phone] Reason: NECK PAIN EXAMS: CPT CODE: [id number] CT C-SPINE W/O CONT 49292 <Continued> at 2228 Reported and signed by: Jose Pepe M.D. CC: Jerry Venegas MD Technologist:RT Arturo(R) CTDI: DLP: Trnscb Date/Time: 01/02/2019 (2227) [email or web address] Orig Print D/T: S: 01/02/2019 (223) PAGE 2 Signed Report - CT HEAD/BRAIN W/O [id number] 22:26:00 Name: GIORGIO TEIXEIRA [facility] [place] : 1960 Age/S: 58 / M [address] [place] [address] Unit #: [id number] Loc: [place] [address] Phys: Jerry Venegas MD Acct: [id number] Di s Date: Status: REG ER PHONE #: Exam Date: 01/02/20192206 FAX #: [phone] Reason: HEADACHE EXAMS: CPT CODE: [id number] CT HEAD/BRAIN W/O CONT 63630 Clinical Indication: HEAD ACHE, trauma; Comparison: None TECHNIQUE: CT images were ob tained from the foramen magnum to the vertex without the use of intravenou s contrast on a multidetector CT. Coronal and sagittal reconstructions wer e obtained. CT radiation dose DLP: 472 mGy-cm FINDINGS: BRAIN PARENCHYMA: There are normal grewal-white interfaces, sulci and gyri. There are no focal mass lesions on this noncontrast head CT. There is no mass effect, midline shift or edema. There are no intra-axial or extra-axial fluid collections, intraventricular or intraparenchymal hem orrhage. The pineal, sellar, brainstem, cerebellum and skull base regions appear unremarkable. VENTRICLES: The lateral ventricles, third and fourth ventricles appear unremarkable. The basilar cisterns are normal. ORBITS, MASTOIDS AND PARANASAL SINUSES: Mucosal thickening is seen in the right maxillary sinus. The visualized orbits and remaining paranasal sinuses are unremarkable. The mastoid air cells are clear. SKULL: There are no osseous abnormalities. If there is further concern for intracranial pathology or acute stroke, MRI of the brain may be performed for complete assessment. IMPRESSION: 1. U nremarkable noncontrast head CT with no mass, hemorrhage or subacute str echo. 2. Sinus disease affecting the right maxillary sinus. SL: LANVU-H at 2226 Reported and signed b y: Elvin Carty M.D. PAGE 1 Signed Report (CONTINUED) Name: GIORGIO TEIXEIRA [facility] : 1960 Age/S: 58 / M [address] [place] [address] [address] Unit #: [id number] Loc: [place], [place] [address] Phys: Jerry Venegas MD Acct: [id number] Dis Date: Status: REG ER PHONE #: [phone] Exam Date: 01/02/20192206 FAX #: [phone] Reason: HEADACHE EXAMS: CPT CODE: [id number] CT HEAD/BRAIN W/O CONT 58285 < Continued> CC: Jerry Venegas MD Technologist:Tori Juan, RT(R) CTDI: DLP: Trnscb Date/Time: 01/02/2019 (2225) [email or web address] Orig Print D/T: S: 01/02/2019 (8415) PAGE 2 Signed Report BASIC METABOLIC [id number] 22:06:00* Test Item Value Reference Range Comments SODIUM (test code=NA) 134 mEq/L 134-147 POTASSIUM (test code=K) 5.1 mEq/L 3.4-5.0 CHLORIDE (test code=CL) 101 mEq/L 100-108 CARBON DIOXIDE (test code=CO2) 24 mEq/L 21-33 ANION GAP (test code=GAP) 14 0-20 GLUCOSE (test code=GLU) 146 mg/dL 70-110 BLOOD UREA NITROGEN (test code=BUN) 41 mg/dL 7-18 GLOMERULAR FILTRATION RATE (test code=GFR) 28.0 90-95 Units of measure=ml/min/1.73 m2 CREATININE (test code=CREAT) 2.4 mg/dL 0.6-1.3 CALCIUM (test code=CA) 9.0 mg/dL 8.0-10.5 HEPATIC FUNCTION [id number] 22:06:00* Test Item Value Reference Range Comments TOTAL PROTEIN (test code=PROT) 7.3 g/dL 6.4-8.2 ALBUMIN (test code=ALB) 3.80 g/dL 3.4-5.0 BILIRUBIN TOTAL (test code=BILT) 0.5 MG/DL <1.5 BILIRUBIN DIRECT (test code=BILD) 0.10 MG/DL 0.0-0.30 BILIRUBIN INDIRECT (test code=BILIND) 0.40 MG/DL SGOT/AST (test code=AST) 14 IUnit/L 15-37 SGPT/ALT (test code=ALT) 15 IUnit/L 15-65 ALKALINE PHOSPHATASE TOTAL (test code=ALKP) 61 IUnit/L 20-125 [id number] 22:06:00* Test Item Value Reference Range Comments LIPASE (test code=LIP) 145 IUnit/L 73-393 [id number] 22:06:00* Test Item Value Reference Range Comments TROPONIN-I (test code=TROPI) < 0.015 ng/mL 0.000-0.045 Negative: <=0.045 Positive: >=0.046 Correlation with serial results, other cardiac markers andclinical findings is necessary to determine the clinicalsignificance of this result. Results using different methodologies should not be comparedto one another as quantitative results may vary by method. [id number] 22:06:00* Test Item Value Reference Range Comments ALCOHOL (test code=ALC) < 0.003 G/dL <0.003 Ethyl Alcohol Interpretation: 0.100 gm/dL - Legally Intoxicated 0.300-0.400 gm/dL - Severely Intoxicated >0.400 gm/dL - Potentially LethalResults are for Medical purposes only, and not for Legal orEmployment evaluation purposes. PROTHROMBIN [id number] 22:02:00* Test Item Value Reference Range Comments PROTHROMBIN TIME PATIENT (test code=PTP) 11.7 SECONDS 9.3-12.9 INTERNATIONAL NORMAL RATIO (test code=INR) 1.0 0.8-1.2 TARGET INR BY INDICATION Indication INR1. Prophylaxis of venous thrombosis 2.0 - 3.0 (orthopedic surgery), Prophylaxis of venous thrombosis (other than high-risk surgery), Treatment of Deep Vein Thrombosis/Pulmonary Embolism, Prevention of systemic embolism - Tissue heart valves, Acute Myocardial Infarction (to prevent systemic embolism), Valvular heart disease, Atrial Fibrillation, Bileaflet mechanical valve in aortic position.2. Mechanical prosthetic valves (high risk), 2.5 - 3.5 Presence of Lupus Anticoagulant or Antiphospholipid Antibodies, Prevention of systemic embolism - Acute Myocardial Infarction (to prevent recurrent infarct). CBC W/AUTO [id number] 21:46:00* Test Item Value Reference Range Comments WHITE BLOOD CELL (test code=WBC) 14.37 x10 3/uL 4.5-11.0 RED BLOOD CELL (test code=RBC) 3.72 x10 6/uL 4.00-5.60 HEMOGLOBIN (test code=HGB) 10.4 g/dL 12.5-16.9 HEMATOCRIT (test code=HCT) 32.3 % 37.5-50.7 MEAN CELL VOLUME (test code=MCV) 86.8 fL 81.0-99.0 MEAN CELL HGB (test code=MCH) 28.0 pg 27.0-33.0 MEAN CELL HGB CONCETRATION (test code=MCHC) 32.2 g/dL 33.0-37.0 RED CELL DISTRIBUTION WIDTH CV (test code=RDW) 12.3 % 11.5-14.5 RED CELL DISTRIBUTION WIDTH SD (test code=RDW-SD) 39.3 fL 37.0-54.0 PLATELET COUNT (test code=PLT) 300 x10 3/uL 150-400 MEAN PLATELET VOLUME (test code=MPV) 10.0 fL 7.0-9.0 NEUTROPHIL % (test code=NT%) 90.8 % 56.0-77.0 IMMATURE GRANULOCYTE % (test code=IG%) 0.5 % 0.0-2.0 LYMPHOCYTE % (test code=LY%) 3.8 % 14.0-32.0 MONOCYTE % (test code=MO%) 4.5 % 4.8-9.0 EOSINOPHIL % (test code=EO%) 0.1 % 0.3-3.7 BASOPHIL % (test code=BA%) 0.3 % 0.0-2.0 NUCLEATED RBC % (test code=NRBC%) 0.0 % 0-0 NEUTROPHIL # (test code=NT#) 13.04 x10 3/uL 2.0-7.6 IMMATURE GRANULOCYTE # (test code=IG#) 0.07 x10 3/uL 0.00-0.03 LYMPHOCYTE # (test code=LY#) 0.55 x10 3/uL 1.0-3.8 MONOCYTE # (test code=MO#) 0.65 x10 3/uL 0.1-0.8 EOSINOPHIL # (test code=EO#) 0.01 x10 3/uL 0.0-0.2 BASOPHIL # (test code=BA#) 0.05 x10 3/uL 0.0-0.2 NUCLEATED RBC # (test code=NRBC#) 0.00 x10 3/uL 0.0-0.1 MANUAL DIFF REQUIRED (test code=MDIFF) NO
[2019-03-30 14:00] VITALS: BP 118/67
== END | disposition home or self-care (01) ==
LOC: OR 08:52
PROVIDERS: ATTEND Internal Medicine Gastroenterology
DX: K29.50 Unspecified chronic gastritis without bleeding (principal); K63.5 Polyp of colon; B96.81 Helicobacter pylori [H. pylori] as the cause of diseases classified elsewhere; K44.9 Diaphragmatic hernia without obstruction or gangrene; K21.0 Gastro-esophageal reflux disease with esophagitis; Z71.3 Dietary counseling and surveillance; R19.5 Other fecal abnormalities; K64.8 Other hemorrhoids; D64.9 Anemia, unspecified
CPT/HCPCS: 43239; 45385; 88305; 88312; 93005; J2001; J2250; J2370; J2704; J3010